=== PATIENT | male | born 2000 | race Caucasian/White ===

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

== ENCOUNTER 2018-11-11 20:20 | Emergency (ER) | payer OTHER ==
[2018-11-11 20:33] VITALS: BP 119/73
--- NOTE | 2018-11-11 20:59 | UC ---
Lower Extremity/Ankle HPI - HPI Summary HPI Summary: 18 yo WM while playing soccer was kicked in the left ankle by the hazelie who was wearing cleats and was in excrucitating pain right away, could not walk, his it trainer placed a supportive lateral brace on it with crutches, cannot near weight on his own - History of Current Complaint Chief Complaint: UCLowerExtremity Stated Complaint: LEFT ANKLE INJURY Time Seen by Provider: 11/11/18 20:29 Hx Obtained From: Patient Onset/Duration: Sudden Onset Severity Initially: Moderate Severity Currently: Moderate Pain Intensity: 10 Aggravating Factor(s): Standing, Ambulation Alleviating Factor(s): Rest, Elevation Able to Bear Weight: No - Allergies/Home Medications Allergies/Adverse Reactions: Allergies Allergy/AdvReac Type Severity Reaction Status Date / Time No Known Allergies Allergy Verified 11/11/18 20:32 Home Medications: Home Medications Acetaminophen [Acetaminophen Extra Strength] 500 mg PO DAILY 11/11/18 [History Confirmed 11/11/18] PMH/Surg Hx/FS Hx/Imm Hx - Surgical History Surgical History: None - Family History Known Family History: Positive: Hypertension, Non-Contributory - Social History Alcohol Use: None Substance Use Type: None Smoking Status (MU): Never Smoked Tobacco - Immunization History Most Recent Tetanus Shot: UTD Review of Systems All Other Systems Reviewed And Are Negative: Yes Constitutional: Positive: Negative Skin: Positive: Negative Eyes: Positive: Negative ENT: Positive: Negative Respiratory: Positive: Negative Cardiovascular: Positive: Negative Gastrointestinal: Positive: Negative Motor: Positive: Negative Musculoskeletal: Positive: Decreased ROM, Edema, Other: - see HPI Neurological: Positive: Negative Is Patient Immunocompromised?: No Physical Exam - Summary Physical Exam Summary: Appearance: Positive: No Pain Distress Skin: Positive: Warm Head/Face: Positive: Normal Head/Face Inspection Eyes: Positive: Normal ENT: Positive: Normal ENT inspection Neck: Positive: Supple Respiratory/Lung Sounds: Positive: Clear to Auscultation. Negative: Rales, Rhonchi, Wheezes Cardiovascular: Positive: Normal, RRR, S1, S2 Abdomen : soft, NT/ND Musculoskeletal: Positive: Moderate Bimalleolar swelling and TTP Neurological: Positive: CN 2-12 grossly intact Triage Information Reviewed: Yes Vital Signs: Initial Vital Signs Temp 37.6 C 11/11/18 20:29 Pulse 88 11/11/18 20:29 Resp 16 11/11/18 20:29 BP 119/73 11/11/18 20:29 Pulse Ox 98 11/11/18 20:29 Lower Extremity Course/Dx - Course Course Of Treatment: Left ankle injury- XR of left ankle - small bony disruption on left lateral talus, may represent a fx, will follow up with official rad reading tomorrow, [facility], Ortho follow up in 2 days as today is tuesday, CD of XR given - Differential Dx/Diagnosis Provider Diagnosis: Talar fracture, Left ankle injury Discharge ED - Sign-Out/Discharge Documenting (check all that apply): Patient Departure All imaging exams completed and their final reports reviewed: Yes - Discharge Plan Condition: Stable Disposition: HOME Prescriptions: Naproxen [Naproxen 500 mg tab] 500 mg PO BID 10 Days #20 tablet Patient Education Materials: Talar Fracture in Adults (ED) Referrals: Vasyl Peraza MD [Medical Doctor] - Additional Instructions: Follow up on TUESDAY WITH ORTHOPEDIST DR VASYL PERAZA - Billing Disposition and Condition Condition: STABLE Disposition: Home
[2018-11-11] MEDS: Naproxen TAB* 250 MG PO ONE ×2 (21:41→21:42)
== END 2018-11-11 21:59 | disposition home or self-care (01) ==
LOC: UCCORT 20:20
DX: S92.102A Unspecified fracture of left talus, initial encounter for closed fracture (principal); W50.0XXA Accidental hit or strike by another person, initial encounter; Y93.66 Activity, soccer; Y92.9 Unspecified place or not applicable
CPT/HCPCS: 99213; A9270-GY; G0463